=== PATIENT | female | born 1995 ===

== ENCOUNTER 2018-02-14 11:12 | Emergency (ER) | payer OTHER ==
[2018-02-14 11:49] VITALS: BP 140/91; PULSE 99; RESP 20; TEMP 98.9; O2SAT 100
--- NOTE | 2018-02-14 16:52 | C.PDOC ---
History Of Present Illness 22 year old female presents to the emergency department with complaints of a left knee abrasion persisting for the past six days. Patient states that she is worried due to it not being fully healed. Chief Complaint (Nursing): Lower Extremity Problem/Injury History Per: Patient History/Exam Limitations: no limitations Onset/Duration Of Symptoms: Days (6) Current Symptoms Are (Timing): Still Present - Knee Description Of Injury: Other (abrasion) Past Medical History Reviewed: Historical Data, Nursing Documentation, Vital Signs Vital Signs: Last Vital Signs Temp 98.9 F 02/14/18 11:46 Pulse 99 H 02/14/18 11:46 Resp 20 02/14/18 11:46 BP 140/91 H 02/14/18 11:46 Pulse Ox 100 02/14/18 16:54 - Medical History PMH: Hypercholesterolemia Surgical History: No Surg Hx Family History: States: No Known Family Hx - Social History Hx Alcohol Use: Yes Hx Substance Use: No - Immunization History Hx Tetanus Toxoid Vaccination: No Hx Influenza Vaccination: No Hx Pneumococcal Vaccination: No Review Of Systems Except As Marked, All Systems Reviewed And Found Negative. Skin: Positive for: Other (abrasion to the left knee) Physical Exam - Physical Exam Appears: Non-toxic, No Acute Distress Skin: Other (1.5cm abrasion to the left knee expressing clear fluid. No active drainage, no bleeding, no signs of cellulitis. ) Head: Atraumatic, Normacephalic Eye(s): bilateral: Normal Inspection Nose: Normal Neck: Normal, Supple Chest: Symmetrical Cardiovascular: Rhythm Regular Respiratory: Normal Breath Sounds Extremity: Normal ROM, No Tenderness Neurological/Psych: Oriented x3, Normal Speech, Normal Cognition ED Course And Treatment O2 Sat by Pulse Oximetry: 100 (RA) Pulse Ox Interpretation: Normal Disposition - Disposition Referrals: [facility] [Outside] [facility] [Outside] Disposition: HOME/ ROUTINE Disposition Time: 11:55 Condition: GOOD Additional Instructions: GAYATHRI MORGAN, thank you for letting us take care of you today. Your provider was Horacio Varela DO and you were treated for KNEE PAIN. The emergency medical care you received today was directed at your acute symptoms. If you were prescribed any medication, please fill it and take as directed. It may take several days for your symptoms to resolve. Return to the Emergency Department if your symptoms worsen, do not improve, or if you have any other problems. Please contact your doctor or call one of the physicians/clinics you have been referred to that are listed on the Patient Visit Information form that is included in your discharge packet. Bring any paperwork you were given at discharge with you along with any medications you are taking to your follow up visit. Our treatment cannot replace ongoing medical care by a primary care provider outside of the emergency department. Thank you for allowing the [facility] team to be part of your care today. Keep knee clean and dry at all times. Follow up with the clinic this week for outpatient care. Prescriptions: Cephalexin [cephalexin] 500 mg PO BID #10 cap Instructions: Skin Abrasions (DC) Forms: [employer]Import (Urdu) - Clinical Impression Clinical Impression: Skin abrasion - Scribe Statement The provider has reviewed the documentation as recorded by the Scribe (Harsh Finn) Provider Attestation: All medical record entries made by the Scribe were at my direction and personally dictated by me. I have reviewed the chart and agree that the record accurately reflects my personal performance of the history, physical exam, medical decision making, and the department course for this patient. I have also personally directed, reviewed, and agree with the discharge instructions and disposition.
== END 2018-02-14 12:10 | disposition home or self-care (01) ==
LOC: C.ER 11:12
DX: S80.212A Abrasion, left knee, initial encounter (principal); X58.XXXA Exposure to other specified factors, initial encounter